=== PATIENT | male | born 1975 | race Caucasian/White ===

== ENCOUNTER 2017-10-14 19:57 | Emergency (ER) | payer OTHER, SELFPAY ==
--- NOTE | 2017-10-14 20:41 | RAD ---
FOUR VIEWS RIGHT KNEE: Comparison: None. History: Right knee pain after his knee gave out. FINDINGS: Four views of the right knee shows no evidence of acute fracture or dislocation. No knee effusion is seen. No degenerative changes are present. IMPRESSION: Unremarkable exam. POS: [facility]
[2017-10-14] MEDS ORDERED: Ketorolac Tromethamine 30 MG/ML VIAL ONE (22:46)
== END 2017-10-14 23:13 | disposition home or self-care (01) ==
LOC: ERS 19:57
DX: M25.461 Effusion, right knee (principal); F32.9 Major depressive disorder, single episode, unspecified; F17.220 Nicotine dependence, chewing tobacco, uncomplicated
CPT/HCPCS: 96372; 99406; J1885